=== PATIENT | male | born 1995 | race Caucasian/White ===

== ENCOUNTER 2022-06-21 14:51 | Emergency (ER) | payer OTHER, SELFPAY ==
[2022-06-21] VITALS (7 sets, daily range): BP systolic 119–129; BP diastolic 63–74; PULSE 75–95; RESP 16–18; TEMP 37.4; O2SAT 95–99; BMI 30.5
--- NOTE | 2022-06-21 15:46 | PC.NURSE ---
girlfriend at bedside. she states patient began having a rash in the summer time. they treated it like it was athletes foot and as long as they kept his feet hydrated with lotion they seem to be normal. but once this regimen was stopped, his feet began peeling and the rash came back. starting wednesday he started having pain in his left heel. then wednesday his left foot started swelling and turning red and he got a blister like abscess on his ankle that oozed pus. at home remedies inlcude lotion, epsom salts, compression.
--- NOTE | 2022-06-21 16:24 | ED_ITS ---
HPI - Skin/Abscess/Foreign Bdy <Pattie Dotson PA-C - Last Filed: 06/21/22 19:51> General Chief complaint: Skin/Abscess/Foreign Body Stated complaint: LEFT FOOT SWOLLEN Time Seen by Provider: 06/21/22 15:27 Source: patient Mode of arrival: Family Vehicle History of Present Illness HPI narrative: shwetha patient is a 26 yo male without significant medical history who has been in his usual state of health until recently. He has been battling for several months now feet fungal infection with soaking his foot with epsom salt, however peeling and redness in his feet got worse. Patient noted his left foot got more red and swollen with tender reddened area over past 2 days rapidly spreading . This AM however, his foot and ankle got even more swollen and tender, patient feels he got chills as well. This AM he is having trouble walking baring wt on Left leg causes great deal of pain. No nausea vomiting, no chest pain No leakage from his sores. Related Data Previous Rx's Medication Instructions Recorded bacitracin zinc 500 unit-polymyxin 1 applic topical Q8H #28.4 grams 06/21/22 B 10,000 unit/gram topical ointment cephalexin 500 mg capsule 500 mg PO TID #42 caps 06/21/22 cephalexin 500 mg capsule 500 mg PO TID 2 weeks #42 caps 06/21/22 clotrimazole 1 % topical cream 1 applic topical BID #30 grams 06/21/22 clotrimazole 1 % topical cream 1 applic topical TID #90 grams 06/21/22 (Antifungal (clotrimazole)) ibuprofen 600 mg tablet 600 mg PO TID #30 tabs 06/21/22 ibuprofen 600 mg tablet 600 mg PO TID foot pain #21 tabs 06/21/22 mupirocin 2 % topical ointment 1 applic topical BID #15 grams 06/21/22 Allergies Allergy/AdvReac Type Severity Reaction Status Date / Time No Known Drug Allergies Allergy Verified 06/21/22 18:09 Review of Systems <Pattie Dotson PA-C - Last Filed: 06/21/22 19:51> Review of Systems Narrative: 12 point review of systems is negative except for those mentioned in HPI above ROS Unobtainable: All systems reviewed & are unremarkable except as noted in HPI and below Patient History <Pattie Dotson PA-C - Last Filed: 06/21/22 19:51> Social History Smoking Status: Current every day smoker Smoking Status: Current every day smoker tobacco type: vaping alcohol intake frequency: 0-2 drinks per day Alcohol type: beer Substance Use Type: marijuana Exam <Pattie Dotson PA-C - Last Filed: 06/21/22 19:51> Narrative Exam Narrative: GENERAL: 26 years old year old patient appears stated age. Well-developed patient, in no acute distress, appears comfortable on hospital bed. HEAD: Atraumatic. Normocephalic. EYES: Pupils equal round and reactive. Extraocular motions intact. No scleral icterus. No injection or drainage. ENT: Nose without bleeding, purulent drainage. Throat without erythema, tonsillar hypertrophy or exudate. Airway patent. NECK: Trachea midline. Non tender CARDIOVASCULAR: Regular rate and rhythm without murmurs, gallops, or rubs. RESPIRATORY: Clear to auscultation. Breath sounds equal bilaterally. No wheezes, rales, or rhonchi. GASTROINTESTINAL: Abdomen soft, non-tender, nondistended. EXTREMITIES: No edema or joint tenderness. BACK: Nontender without deformity or crepitance. No flank tenderness. NEURO: AOx3. no focal deficits SKIN: left foot with significant exfoliation about his heel, toes, and maceration there is edema extending to his mid calf and erythema worse on posterior ankle There is 3 cm and 4 cm right leg lateral erythema consistent with developing cellulites No rash or erythema on the trunk and upper extremi ties visible areas Initial Vital Signs Initial Vital Signs: Vital Signs Temperature 99.3 F 06/21/22 15:14 Pulse Rate 95 H 06/21/22 15:14 Respiratory Rate 18 06/21/22 15:14 Blood Pressure 129/69 06/21/22 15:14 Pulse Oximetry 98 06/21/22 15:14 Oxygen Delivery Method 06/21/22 15:14 <Jace Gabriel DO - Last Filed: 06/22/22 07:19> Initial Vital Signs Initial Vital Signs: Vital Signs Temperature 99.3 F 06/21/22 15:14 Pulse Rate 95 H 06/21/22 15:14 Respiratory Rate 18 06/21/22 15:14 Blood Pressure 129/69 06/21/22 15:14 Pulse Oximetry 98 06/21/22 15:14 Oxygen Delivery Method 06/21/22 15:14 Course <Pattie Dotson PA-C - Last Filed: 06/21/22 19:51> Orders Ordered: Discontinued Medications Sodium Chloride (Normal Saline 0.9%) 2,653.53 mls @ 884.51 mls/hr 30 ml/kg infuse over 3 hr (2653.53 ml) IV NOW ONE Stop: 06/21/22 19:49 Last Infusion: 06/21/22 19:10 Dose: 0 mls/hr Documented By: Admin: 06/21/22 17:17 Dose: 884.51 mls/hr Documented By: KIMBERLY Cefepime HCl 2 gm/ Sodium (Chloride) 100 mls @ 200 mls/hr IV NOW ONE Stop: 06/21/22 16:51 Last Infusion: 06/21/22 17:57 Dose: 0 mls/hr Documented By: Admin: 06/21/22 17:15 Dose: 200 mls/hr Documented By: KIMBERLY Vital Signs Vital signs: Vital Signs - 8 hr 06/21/22 15:14 06/21/22 16:48 06/21/22 16:48 Temperature 99.3 F Pulse Rate 95 H 91 H Respiratory Rate 18 Blood Pressure 129/69 129/66 Pulse Oximetry 98 97 Oxygen Delivery Method Room Air 06/21/22 17:00 06/21/22 17:00 06/21/22 17:30 Temperature Pulse Rate 94 H Respiratory Rate Blood Pressure 119/63 125/66 Pulse Oximetry 96 Oxygen Delivery Method 06/21/22 17:30 06/21/22 18:00 06/21/22 18:00 Temperature Pulse Rate 95 H 93 H Respiratory Rate Blood Pressure 125/66 Pulse Oximetry 95 95 Oxygen Delivery Method Room Air 06/21/22 18:30 06/21/22 19:11 Temperature Pulse Rate 88 75 Respiratory Rate 16 Blood Pressure 121/74 Pulse Oximetry 96 99 Oxygen Delivery Method Room Air <Jace Gabriel DO - Last Filed: 06/22/22 07:19> Orders Ordered: Discontinued Medications Sodium Chloride (Normal Saline 0.9%) 2,653.53 mls @ 884.51 mls/hr 30 ml/kg infuse over 3 hr (2653.53 ml) IV NOW ONE Stop: 06/21/22 19:49 Last Infusion: 06/21/22 19:10 Dose: 0 mls/hr Documented By: Admin: 06/21/22 17:17 Dose: 884.51 mls/hr Documented By: KIMBERLY Cefepime HCl 2 gm/ Sodium (Chloride) 100 mls @ 200 mls/hr IV NOW ONE Stop: 06/21/22 16:51 Last Infusion: 06/21/22 17:57 Dose: 0 mls/hr Documented By: Admin: 06/21/22 17:15 Dose: 200 mls/hr Documented By: KIMBERLY Vital Signs Vital signs: Vital Signs - 8 hr 06/21/22 15:14 06/21/22 16:48 06/21/22 16:48 Temperature 99.3 F Pulse Rate 95 H 91 H Respiratory Rate 18 Blood Pressure 129/69 129/66 Pulse Oximetry 98 97 Oxygen Delivery Method Room Air 06/21/22 17:00 06/21/22 17:00 06/21/22 17:30 Temperature Pulse Rate 94 H Respiratory Rate Blood Pressure 119/63 125/66 Pulse Oximetry 96 Oxygen Delivery Method 06/21/22 17:30 06/21/22 18:00 06/21/22 18:00 Temperature Pulse Rate 95 H 93 H Respiratory Rate Blood Pressure 125/66 Pulse Oximetry 95 95 Oxygen Delivery Method Room Air 06/21/22 18:30 06/21/22 19:11 Temperature Pulse Rate 88 75 Respiratory Rate 16 Blood Pressure 121/74 Pulse Oximetry 96 99 Oxygen Delivery Method Room Air MDM - Skin/Abscess/Foreign Bdy <Pattie Dotson PA-C - Last Filed: 06/21/22 19:51> Differential Diagnosis Differential diagnosis: Likely cellulitis Medical Records Medical records narrative: labs and imaging studies were reviewed Lab Data Result diagrams: 06/21/22 16:40 06/21/22 16:40 Labs: Lab Results 06/21/22 06/21/22 06/21/22 Range/Units 16:40 16:40 16:40 WBC 19.1 H (4.5-11.0) X10^3/uL RBC 4.41 L (4.5-5.9) X10^6/uL Hgb 13.6 (13.5-17.5) g/dL Hct 39.5 L (41-53) % MCV 89.6 (80-100) fL MCH 30.9 (26-34) PG MCHC 34.4 (30-36) % RDW 12.3 (11.6-14.8) % Plt Count 174 (150-400) X10^3/uL Neut % (Auto) 84.4 H (50-75) % Lymph % (Auto) 6.2 L (25-40) % [place] % (Auto) 8.8 (3-14) % Eos % (Auto) 0.3 L (2-4) % Baso % (Auto) 0.3 (0-2) % Neut # (Auto) 14267 H (9013-9339) /uL Lymph # (Auto) 1200 (4242-3961) /uL [place] # (Auto) 1700 H (0-900) /uL Eos # (Auto) 0 (0-450) /uL Baso # (Auto) 100 (0-100) /uL Sodium 135 L (137-145) mmol/L Potassium 3.6 (3.4-5.1) mmol/L Chloride 102 (98-107) mmol/L Carbon Dioxide 23 (22-32) mmol/L BUN 9 (9-20) mg/dL Creatinine 0.82 (0.66-1.25) mg/dL Estimated GFR > 60 (>60) mL/min BUN/Creatinine Ratio 11.0 (6-22) Glucose 105 H (70-100) mg/dL Lactate 0.7 (0.7-2.1) mmol/L Calcium 8.6 (8.4-10.2) mg/dL Total Bilirubin 0.8 (0.2-1.3) mg/dL AST 20 (17-59) IU/L ALT 24 (<50) IU/L Alkaline Phosphatase 66 (38-126) U/L Total Protein 7.0 (6.3-8.2) g/dL Albumin 4.0 (3.5-5.0) g/dL Globulin 3.0 (1.7-4.1) g/dL Albumin/Globulin Ratio 1.3 (1.0-2.8) Procalcitonin 0.11 (<0.5) ng/mL Imaging Data Extremity x-ray #1: Radiologist's Impression: IMPRESSION:? Soft tissue swelling is seen, without an acute bony abnormality seen by plain film. ? If there is point tenderness (or other clinical suspicion for a fracture not seen on these images) then a dedicated CT or a short-term followup plain film series could be considered for further evaluation, as clinically appropriate. ? MDM Narrative Medical decision making narrative: Patient displays extensive skin Tinea Pedis , as well as superimposed cellulitis these factors responsible for patient's symptoms including: pain, redness swelling, labs abnormalities - elevated White cell count Patient's symptoms improved over duration of stay with IV antibiotics, hydration. Findings and discharge diagnosis discussed with patient/family followed by verbalization of understanding Return precautions discussed with patient/family whom verbalize understanding. <Jace Gabriel, - Last Filed: 06/22/22 07:19> Lab Data Labs: Lab Results 06/21/22 06/21/22 06/21/22 Range/Units 16:40 16:40 16:40 WBC 19.1 H (4.5-11.0) X10^3/uL RBC 4.41 L (4.5-5.9) X10^6/uL Hgb 13.6 (13.5-17.5) g/dL Hct 39.5 L (41-53) % MCV 89.6 (80-100) fL MCH 30.9 (26-34) PG MCHC 34.4 (30-36) % RDW 12.3 (11.6-14.8) % Plt Count 174 (150-400) X10^3/uL Neut % (Auto) 84.4 H (50-75) % Lymph % (Auto) 6.2 L (25-40) % [place] % (Auto) 8.8 (3-14) % Eos % (Auto) 0.3 L (2-4) % Baso % (Auto) 0.3 (0-2) % Neut # (Auto) 67921 H (6900-8616) /uL Lymph # (Auto) 1200 (7355-1569) /uL [place] # (Auto) 1700 H (0-900) /uL Eos # (Auto) 0 (0-450) /uL Baso # (Auto) 100 (0-100) /uL Sodium 135 L (137-145) mmol/L Potassium 3.6 (3.4-5.1) mmol/L Chloride 102 (98-107) mmol/L Carbon Dioxide 23 (22-32) mmol/L BUN 9 (9-20) mg/dL Creatinine 0.82 (0.66-1.25) mg/dL Estimated GFR > 60 (>60) mL/min BUN/Creatinine Ratio 11.0 (6-22) Glucose 105 H (70-100) mg/dL Lactate 0.7 (0.7-2.1) mmol/L Calcium 8.6 (8.4-10.2) mg/dL Total Bilirubin 0.8 (0.2-1.3) mg/dL AST 20 (17-59) IU/L ALT 24 (<50) IU/L Alkaline Phosphatase 66 (38-126) U/L Total Protein 7.0 (6.3-8.2) g/dL Albumin 4.0 (3.5-5.0) g/dL Globulin 3.0 (1.7-4.1) g/dL Albumin/Globulin Ratio 1.3 (1.0-2.8) Procalcitonin 0.11 (<0.5) ng/mL Discharge Plan Departure Patient Disposition: Home Clinical Impression: Cellulitis, Abscess of skin or subcutaneous tissue, Tinea corporis Instructions: DI for Cellulitis -- Adult Activity Restrictions/Additional Instructions: *You have been diagnosed with cellulitis, left foot Tinea Pedis *What to do: *Please continue to take your regular medications as directed. [x ] New medication prescriptions sent to your pharmacy: Ibuprofen 600 mg 3 times daily for pain Keflex 500 mg 3 times daily for bacterial skin infection Clotrimazole 1% cream for fungal skin infection [place] [facility] [address]?[id number] *Please follow up with your primary care provider in 2-3 days, call for an appointment. Let them know you were seen in the Emergency Department and that we ask that you be seen in follow up. We will electronically transmit a record of today's note if your PCP is in our system *If you do not have a primary care provider please contact the [facility] Resource line at [phone]. They will ask some questions about your medical history and help get you set up with a doctor in the community. *Return to Emergency Department if you should have any new, worsening or concerning symptoms, such as worsening edema and redness in left lower extremity fever greater than 101 F, shaking chills, worsening pain, persistent vomiting or other bothersome symptoms Prescriptions: New cephalexin 500 mg capsule 500 mg PO TID Qty: 42 0RF ibuprofen 600 mg tablet 600 mg PO TID Qty: 21 0RF clotrimazole [Antifungal (clotrimazole)] 1 % cream 1 applic topical TID Qty: 90 1RF Rx Instructions: apply thin film to affected area bacitracin zinc-polymyxin B 500-10,000 unit/gram ointment 1 applic topical Q8H Qty: 28.4 2RF Rx Instructions: apply thin film to affected area clotrimazole 1 % cream 1 applic topical BID Qty: 30 0RF ibuprofen 600 mg tablet 600 mg PO TID Qty: 30 0RF cephalexin 500 mg capsule 500 mg PO TID 14 Days Qty: 42 0RF mupirocin 2 % ointment 1 applic topical BID Qty: 15 0RF Referrals: Miscellaneous,Doctor, MD [Primary Care Provider] - Stand Alone Forms: Work Release Note Visit Report Forms: Patient Portal/API <Jace Gabriel, DO - Last Filed: 06/22/22 07:19> Cosign ED Attending Cosignature Attestation: Dr Gabriel Co-Sign Statement: I was available for consultation during this patient's emergency department visit. This chart is signed by myself for admini strative purposes only. I did not have direct contact with this patient during this visit. They were seen independently by the APC.
--- NOTE | 2022-06-21 16:48 | DI.RAD.S_ITS ---
PROCEDURE: XR ANKLE LT MIN 3V INDICATIONS: swelling pain left ankle TECHNIQUE: 3 views of the ankle were acquired. COMPARISON: None. FINDINGS: Bones: No fractures or dislocations. Ankle mortise is normally aligned. No suspicious bony lesions. Incidental note is made of an accessory ossicle, an os trigonum. Soft tissues: Soft tissue swelling is seen, particularly laterally. IMPRESSION: Soft tissue swelling is seen, without an acute bony abnormality seen by plain film. If there is point tenderness (or other clinical suspicion for a fracture not seen on these images) then a dedicated CT or a short-term followup plain film series could be considered for further evaluation, as clinically appropriate. Dictated by: Timo Sosa M.D. on 06/21/2022 at 16:12 Approved by: Timo Sosa M.D. on 06/21/2022 at 16:13
[2022-06-21 17:04] LABS: Add Manual Diff / Slide Review NO; Basophils Absolute Auto 100 /uL (0-100); Basophils Percent Auto 0.3 % (0-2); Eosinophils Absolute Auto 0 /uL (0-450); Eosinophils Percent Auto 0.3 % (2-4); Hematocrit 39.5 % (41-53); Hemoglobin 13.6 g/dL (13.5-17.5); Lymphocytes Absolute Auto 1200 /uL (1100-4500); Lymphocytes Percent Auto 6.2 % (25-40); Mean Corpuscular HGB Conc 34.4 % (30-36); Mean Corpuscular Hemoglobin 30.9 PG (26-34); Mean Corpuscular Volume 89.6 fL (80-100); Monocytes Absolute Auto 1700 /uL (0-900); Monocytes Percent Auto 8.8 % (3-14); Neutrophils Absolute Auto 16200 /uL (1500-7000); Neutrophils Percent Auto 84.4 % (50-75); Platelet Count 174 X10^3/uL (150-400); Red Blood Cell Count 4.41 X10^6/uL (4.5-5.9); Red Cell Distribution Width 12.3 % (11.6-14.8); White Blood Cell Count 19.1 X10^3/uL (4.5-11.0)
[2022-06-21 17:11] LABS: Lactate (Lactic Acid) 0.7 mmol/L (0.7-2.1)
[2022-06-21 17:13] LABS: Alanine Aminotransferase 24 IU/L (<50); Albumin Globulin Ratio 1.3 (1.0-2.8); Alkaline Phosphatase 66 U/L (38-126); Aspartate Aminotransferase 20 IU/L (17-59); Bilirubin Total 0.8 mg/dL (0.2-1.3); Blood Urea Nitrogen 9 mg/dL (9-20); Calcium 8.6 mg/dL (8.4-10.2); Carbon Dioxide 23 mmol/L (22-32); Chloride 102 mmol/L (98-107); Estimated Glomerular Filt Rate > 60 mL/min (>60); Glucose 105 mg/dL (70-100); HEMOLYSIS < 15 (0-50); Potassium 3.6 mmol/L (3.4-5.1); Sodium 135 mmol/L (137-145)
[2022-06-21] MEDS: CEFEPIME 2 GM in SODIUM CHLORIDE 0.9% 100 ML IV (17:15)
[2022-06-21] MEDS: SODIUM CHLORIDE 0.9% 2,653.53 ML 884.51 ML IV (17:17)
[2022-06-21 17:29] LABS: Procalcitonin 0.11 ng/mL (<0.5)
== END 2022-06-21 19:12 | disposition home or self-care (01) ==
PROVIDERS: Emergency Provider Physician Assistant Medical
DX: L03.116 Cellulitis of left lower limb (principal); L02.612 Cutaneous abscess of left foot; B35.4 Tinea corporis
CPT/HCPCS: 36415; 73610; 80053; 83605; 84145; 85025; 87040; 96365; 99284; J0692